=== PATIENT | male | born 1960 | race Caucasian/White ===

== ENCOUNTER 2022-04-18 10:40 | Inpatient (IN) | payer BC, SELFPAY ==
[2022-04-18] VITALS (19 sets, daily range): BP systolic 98–152; BP diastolic 45–95; PULSE 71–115; RESP 16–23; TEMP 35.8–37.9; O2SAT 89–100; BMI 27.3; BMI 26.9
--- NOTE | 2022-04-18 10:41 | EKG12_ITS ---
Test Reason : CP Blood Pressure : / mmHG Vent. Rate : 099 BPM Atrial Rate : 099 BPM P-R Int : 166 ms QRS Dur : 076 ms QT Int : 374 ms P-R-T Axes : 075 089 -50 degrees QTc Int : 479 ms Normal sinus rhythm Low voltage QRS Anteroseptal infarct , possibly acute Lateral injury pattern ACUTE WV / STEMI Abnormal ECG Confirmed by SHAINA BERRY, DAVE ([id number]), editorial cartoonist PETER MIN ([id number]) on 04/20/2022 1:45:38 PM Referred By: Abdoulaye Moss Confirmed By:YOHANNES MOSS MD
--- NOTE | 2022-04-18 10:45 | ED.VIS.CHEST ---
HPI History of Present Illness Chief Complaint: Chest Pain Detail of Chief Complaint: Midsternal chest pain Informant: patient and EMS Onset/Context/Timing Onset: Hours (25 minutes prior to presentation while playing golf) Activity at onset: sudden Timing: Continuous Quality: Positive for Heaviness and Pressure Location: Substernal Current Severity: Severe Maximum Severity: Severe Worsened By: Nothing Relieved By: Nothing Associated Symptoms: Positive for Nausea, Diaphoresis and Dyspnea; Negative for Cough, Fever, Lightheadedness, Acid Reflux and Palpitations Narrative Narrative: Patient is a 62-year-old male with history of diabetes. Patient developed severe crushing pressure midsternal chest pain while playing golf. He feels nauseous and is diaphoretic. He complains of mild shortness of breath. He may have been hypoxic prior to arrival. He denies history of hypertension. He denies numbness or tingling his upper or lower extremities. He denies back pain. He has no contraindication anticoagulation. Prior Similar Symptoms: No CVD Risk Factors: Positive for Diabetes; Negative for Hypertension, Hypercholesterolemia, Family History 1' </=55 and Smoking PE Risk Factors: Negative for Recent Travel/Surgery, Recent Immobilization, Prior DVT or PE, Cancer and OCP + Smoking + >/=35 TAD Risk Factors: Negative for Marfan's Syndrome, Hypertension and Family History PFSH PFS Medical History (Updated 04/18/22 @ 10:[address] Miguel Gustafson MD) Diabetes no medical history Allergy/AdvReac Type Severity Reaction Status Date / Time No Known Allergies Allergy Verified 04/18/22 10:46 Social History (Updated 04/18/22 @ 10:[address] Miguel Gustafson MD) household members: other Smoking Status: Never smoker alcohol intake: current substance use type: does not use ROS ROS ED Constitutional Constitutional ED: Denies chills, fever(s), subjective, sweats or weight loss Eyes Eyes: Denies blurry vision, change in vision or diplopia ENT ENT ED: Denies ear pain, rhinorrhea or sore throat Cardiovascular Cardiovascular: Reports as per HPI; Denies orthopnea Respiratory/Chest Respiratory/Chest: Reports dyspnea and dyspnea on exertion; Denies cough, orthopnea or sputum Gastrointestinal Gastrointestinal: Reports nausea; Denies abdominal pain, constipation, diarrhea, melena or vomiting Genitourinary Genitourinary ED: Denies dysuria, hematuria or urinary frequency Musculoskeletal Musculoskeletal: Denies arthralgias, myalgias or neck pain Integumentary Denies abscess, Abrasions or rash Neurologic Neurologic: Denies headache(s), paresthesias or weakness Psychiatric Psychiatric: Reports anxiety Hematologic/Lymphatic Hematologic/Lymphatic: Denies easy bleeding or easy bruising EXAM Physical Exam Const Vital Signs: 04/18/22 10:41 Temperature 96.5 F L Temperature Source Temporal Pulse Rate 71 Respiratory Rate 16 Blood Pressure 113/84 H Blood Pressure Mean 93 Pulse Ox 96 Oxygen Delivery Method Room Air Positive well nourished and well developed General Appearance ED: well developed and other Patient is writhing in pain holding his chest and profusely sweating ; Negative for NAD or pallor HEENT Reports dry mucous membranes normocephalic and atraumatic Mouth ED: Yes dry mucous membranes Mouth: dry mucous membranes Eyes PERRL and EOMs intact bilaterally General Eye ED: Negative for pale conjunctiva or scleral icterus Neck no lymphadenopathy, supple and no JVD Chest Wall inspection of chest normal and palpation of chest normal Resp No normal respiratory effort Effort and Inspection: respiratory distress Auscultation: rales bilateral base Cardio regular rate, regular rhythm, S1 normal heart sound, S2 normal heart sound and no murmurs GI normal to inspection, nondistended, normoactive bowel sounds, soft to palpation, non-tender and non-distended; Negative for hepatosplenomegaly Back/Spine no CVA tenderness and no thoracic nor lumbar tenderness Extremity normal to inspection General Extremety ED: Negative for edema, pulses abnormal or tenderness General Extremity: Negative for edema or pulses abnormal Neuro CN's II-XII intact bilaterally and no sensory deficits noted Sensorium / Orientation: awake Motor Exam: strength 5/5 throughout Psych Psych Narrative: Patient is anxious Skin no rashes or lesions noted and no wounds General Skin Exam: Negative for jaundice or pallor Heart Score History: Highly Suspicious ECG: Significant ST-Depression Age: >45 - <65 years Risk Factors: 1 or 2 Risk Factors Score: 6 MDM MDM MDM Narrative Medical decision making narrative: Patient with marked ST elevation anterior leads with reciprocal changes in inferior leads. This reveals an acute anterior ST elevation [place]. STEMI team was called. Patient was treated with aspirin, heparin and Brilinta. Spoke with service center technician. Lab Data Lab results narrative: Lab results were not available at the time of dictation and transfer to cardiac Apprenticeship Training Representative EKG Initial EKG: Interpretation: Sinus Rhythm (Ventricular rate is 99. WV interval is 106 6 ms. Cures duration 76 ms. QT duration 374 ms. [place] is normal. Patient has an acute ST elevation [place]V anteriolateral lead with reciprocal changes in the inferior leads.) Critical Care Time Critical Care Time: Yes Critical care time (excluding procedures): 30-74 minutes (10 minutes), Including time spent: (History, documentation, discussion with service center technician), Discussing w/Patient &/or Family/Manager Provider Relations, Discussing w/Consultants and Arranging Admission or Transfer Discharge Plan Triage Chief Complaint: Chest Pain ED Provider: Miguel Gustafson Dx/Rx/DC Orders Clinical Impression: Acute ST elevation myocardial infarction (STEMI) of anterolateral wall Primary Care Provider: Care Physician,No Primary Referrals: Care Physician,No Primary [Primary Care Provider] - Disposition Disposition: Acute Care Hospital [facility] Discharge Date/Time: 04/18/22 10:48
--- NOTE | 2022-04-18 10:49 | NURSING ---
ICU AFTER PRINCIPAL DATABASE DEVELOPER SHAINA ACUTE STEMI
[2022-04-18] MEDS: Aspirin 81 MG TAB.CHEW 324 MG PO (10:51)
[2022-04-18] MEDS: TICAGRELOR 90 MG TABLET 180 MG PO (10:51)
[2022-04-18] MEDS: 0.9% Normal Saline 1,000 ML 150 ML IV (10:52)
[2022-04-18] MEDS: Heparin Injection (Vial) 5,000 UNIT/ML VIAL 4000 UNIT IV (10:52)
[2022-04-18 10:55] LABS: Absolute Lymphocyte Count 1.91 X10^3/uL (0.83-4.51); Absolute Neutrophil Count 4.8 X10^3/uL (2.0-7.7); Basophil# 0.05 X10^3/uL; Basophil% 0.6 % (0-1); Eosinophil# 0.14 X10^3/uL; Eosinophils% 1.7 % (0-5); Hematocrit 50.1 % (40-54); Lymphocyte # 1.91 X10^3/ul (0.83-4.51); Lymphocyte % 23.7 % (19-41); Mean Corp Hgb Conc 33.9 g/dL (32-36); Mean Corpuscular Hgb 29.4 pg (27.0-32.0); Mean Corpuscular Volume 86.5 fL (80-94); Mean Platelet Vol. 9.5 fl (6.2-12.0); Monocyte# 1.17 X10^3/uL; Monocyte% 14.5 % (0-10); NRBC Flagged by Analyzer 0 % (0-5); Neutrophil # 4.76 X10^3/uL (2.7-7.7); Platelet Count 253 K/mm3 (150-450); RBC Distribution Width CV 12.8 % (11.6-14.6); RBC Distribution Width SD 39.6 fl (35.1-43.9); Red Blood Count 5.79 M/mm3 (4.6-6.2); White Blood Count 8.1 K/mm3 (4.4-11.0)
[2022-04-18 11:03] LABS: International Normalized Ratio 0.9; Prothrombin Time (Protime)PT. 12.2 SECONDS (11.7-14.9)
[2022-04-18 11:04] LABS: Partial Thromboplast Time 23.5 Seconds (24.1-36.2)
[2022-04-18 11:14] LABS: Anion Gap 14 (5-15); BUN 33 mg/dL (7-18); BUN/Creat Ratio 25.2 RATIO (10-20); Calcium,Total 9.9 mg/dL (8.5-10.1); Chloride 103 mmol/L (98-107); Creatinine, Serum 1.31 mg/dL (0.70-1.30); EST Glomerular Filtration Rate 59 mL/min (>60); Est Glom Filt Rate - Afr Amer 71 mL/min (>60); Estimated Creatinine Clearance 58.47 ml/min; Glucose 255 mg/dL (74-106); Potassium 3.9 mmol/L (3.5-5.1); Sodium Level 137 mmol/L (136-145); Troponin-I HS 54 pg/mL (3.0-78.0)
--- NOTE | 2022-04-18 11:34 | CM.ED ---
Social Work Note Reason for Referral: STEMI alert This worker and SW Ramya MACEDO-S responded to STEMI Alert. Pt's brother Rich at [facility]. Support provided to Rich. Chloé Butterfield DIAMOND SIZER AND SORTER, CORROSION CONTROL FITTER
--- NOTE | 2022-04-18 12:14 | HP.PCM.HOS_ITS ---
HPI - General General Date of Admission: 04/18/22 Date of Service: 04/18/22 Chief Complaint: Chest pain while playing golf today HPI Narrative GRACIE NAIDU, is a 62 M with history of diabetes mellitus type 2 was brought to ED for midsternal chest pressure while playing golf. He woke up fine in the morning and then while playing soccer and only felt chest pressure, localized 3- 4/10 intensity associated with mild shortness of breath. He tried to play for some time but chest pain persisted and got worse therefore came to ER. Patient also felt nauseous and diaphoretic and vomited once in the Transfer Car [facility]. Twelve-lead EKG done in the ER shows acute anterior ST elevation 11 mm V2 to V6 along with reciprocal ST depression in inferior leads. Sinus rhythm at 99 bpm. QRS 76 ms, QT 374 ms. STEMI alert was called. Patient was taken to [facility]. 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 Origin of left main may be normal variation. It was about 99% occlusion and PCI/2DES stent was placed. Right radial artery approach but was unsuccessful therefore right femoral artery access. It was closed with Perclose. The patient was admitted and transferred to the ICU. Vitals, labs reviewed and discussed in assessment and plan Patient denies history of hypertension. His mother and father both had coronary artery disease/[place] in their 50s. His brother also has history of coronary artery disease. Patient denies any smoking cigarettes/nicotine use or substance use. Occasionally takes alcohol. [facility] Medical History Diabetes Medical History no medical history Allergy/AdvReac Type Severity Reaction Status Date / Time No Known Allergies Allergy Verified 04/18/22 10:46 Social History household members: other Smoking Status: Never smoker alcohol intake: current substance use type: does not use ROS ROS Narrative Constitutional: Reports fatigue and weakness HEENT: Reports systems reviewed and no addt'l complaints, except as documented Respiratory/CVS: As mentioned in HPI. No prior history of [place] chest pain or angina. Denies claudication or peripheral arterial disease. Gastrointestinal: Denies coffee ground emesis, hematemesis or vomiting Genitourinary: Denies burning urination or new urinary tract symptoms Musculoskeletal: Denies joint pain or limited range of motion Neurologic: Denies seizure-like activity. No stroke or weakness or numbness. skin: No ulcer. No rash Endocrinology: Reports systems reviewed and no addt'l complaints, except as documented Hematologic/Lymphatic: Reports systems reviewed and no addt'l complaints, except as documented Rest 14 ROS are negative except as mentioned in HPI Vital Signs Vital Signs Vital Signs: 04/18/22 10:41 04/18/22 10:48 04/18/22 10:51 Temperature 96.5 F L 96.7 F L Temperature Source Temporal Temporal Pulse Rate 71 74 Respiratory Rate 16 18 Respiratory Effort Normal Non-Labored Respiratory Pattern Normal Blood Pressure 113/84 H 98/45 L Blood Pressure Mean 93 62 Pulse Ox 96 96 Oxygen Delivery Method Room Air Nasal Cannula Room Air Oxygen Flow Rate (L/min) 2 Weight Weight: 188 lb 1.6 oz Body Mass Index (BMI) 27.3 Physical Exam Narrative General: Mild lethargy after cath. Oriented x3, Cooperative HEENT: Atraumatic, PERRLA, EOMI, Normocephalic Oral: Oral mucosa dry. No Gingival or Mucosal Lesions/ Ulcerations Neck: Supple, No JVD, Negative Carotid Bruits Lungs: Air entry diminished in bilateral lung bases. No crepitation/rhonchi Cardiovascular: Regular rate, Regular Rhythm, Normal S1, Normal S2, No murmurs Abdomen: Bowel Sounds Present, Soft, Non Tender, Non-Distended : No dysuria/new lower intact symptoms. No renal angle tenderness. No suprapubic tenderness. Extremities: No edema, Capillary Refill Less than 3 Seconds Skin: No rashes, No breakdown Musculoskeletal: No Tenderness to Palpation of Joints or Extremities Neurological: Cranial nerves II-XII grossly intact, DTR 2+/4 and Symmetrical, Neuro grossly intact Psych/Mental Status: Normal Affect, Appropriate. Results Lab / Micro Data Result Diagrams: 04/18/22 12:45 04/18/22 10:45 Labs: Laboratory Results - last 24 hr 04/18/22 10:45: WBC 8.1, RBC 5.79, Hgb 17.0 H, Hct 50.1, MCV 86.5, MCH 29.4, MCHC 33.9, RDW Std Deviation 39.6, RDW Coeff of Danny 12.8, Plt Count 253, MPV 9.5, Immature Gran % (Auto) 0.500, Neut % (Auto) 59.0, Lymph % (Auto) 23.7, Lucas % (Auto) 14.5 H, Eos % (Auto) 1.7, Baso % (Auto) 0.6, Absolute Neuts (auto) 4.8, Absolute Lymphs (auto) 1.91, Nucleated RBC % 0 04/18/22 10:45: PT 12.2, INR 0.9, APTT 23.5 L 04/18/22 10:45: Sodium 137, Potassium 3.9, Chloride 103, Carbon Dioxide 20.0 L, Anion Gap 14, BUN 33 H, Creatinine 1.31 H, Estim Creat Clear Calc 58.47, Est GFR (MDRD) Af Amer 71, Est GFR (MDRD) Non-Af 59 L, BUN/Creatinine Ratio 25.2 H, Glucose 255 H, Calcium 9.9, Troponin I High Sens 54 Assessment & Plan Assessment/Plan (1) Acute ST elevation myocardial infarction (STEMI) of anterolateral wall: PLAN: 1. Acute NSTEMI of anterolateral wall: Patient is being admitted in ICU. Patient had cath and found to have left main culprit lesion for which she had PCI and 2 stents. On aspirin, Brilinta, carvedilol, lisinopril, and atorvastatin. Right femoral artery access was closed with Perclose. Monitor ri ght groin for hematoma or bleeding. Most recent vitals shows blood pressure 98/45, heart rate 74. No hypoxia. Serum magnesium ordered. Repeat EKG shows resolution of ST elevation and reciprocal changes. Normal sinus rhythm. Mild leukocytosis probably inflammatory reaction to STEMI. First troponin negative. 2D echo and fasting lipid profile and TSH ordered for tomorrow a.m. 2. Diabetes mellitus type 2: Glucose is uncontrolled, 255 in BMP. A1c tomorrow a.m. Accu-Chek before meals and at bedtime coverage with Humalog sliding scale. 3. Elevated BUN/creatinine: BUN 33, creatinine 1.31, BUN/creatinine ratio 25 suggestive of prerenal possible [place]. No previous labs to compare. On IV fluid normal saline. Monitor electrolytes and kidney function 4. VTE prophylaxis: Lovenox 40 mg every 12 hourly after 24 hours of sheath removal. Discontinue if platelet count drops less than 50,000 or hemoglobin less than 8 g%. Bilateral SCDs Living will/advanced directive/end of life care: Patient does not have living will or advanced directive. His next to kin his brother. Patient is single does not have or kids. After discussion of benefits/risks procedures involved with full code, DNR CC arrest and DNR CC, the patient opted for full code. Patient does want artificial life support including intubation, tube feed, ventilator and/chest compression, central venous catheter, vasopressor and DC shock if needed Total time spent in [id number] encounter in discussion of advanced directive 16 minutes. Charges/Coding Visit Charges Inpatient E&M: 34548 Init Hosp L3 Procedures Hospitalists Procedures: 43475 Advncd Care Plan 30 Min
--- NOTE | 2022-04-18 12:15 | EKG12_ITS ---
Test Reason : POST STEMI Blood Pressure : / mmHG Vent. Rate : 083 BPM Atrial Rate : 083 BPM P-R Int : 182 ms QRS Dur : 080 ms QT Int : 398 ms P-R-T Axes : 064 029 057 degrees QTc Int : 467 ms Normal sinus rhythm Normal ECG When compared with ECG of 18-APR-2022 10:40, MANUAL COMPARISON REQUIRED, DATA IS UNCONFIRMED Confirmed by SHAINA BERRY, DAVE ([id number]), photo editor PETER MIN ([id number]) on 04/20/2022 1:52:15 PM Referred By: Abdoulaye Moss Confirmed By:YOHANNES MOSS MD
--- NOTE | 2022-04-18 12:26 | EKG12_ITS ---
Test Reason : AM EKG Blood Pressure : / mmHG Vent. Rate : 078 BPM Atrial Rate : 078 BPM P-R Int : 170 ms QRS Dur : 078 ms QT Int : 414 ms P-R-T Axes : 054 085 095 degrees QTc Int : 471 ms Normal sinus rhythm Septal infarct , age undetermined Abnormal ECG When compared with ECG of 19-APR-2022 04:44, No significant change was found Confirmed by BARRETT BERRY, KERRIE ([id number]), makeup editor PETER MIN ([id number]) on 04/24/2022 1:19:04 PM Referred By: Abdoulaye Moss Confirmed By:KERRIE HYDE MD
--- NOTE | 2022-04-18 12:31 | ECHOCS_ITS ---
Reason For Study: STEMI Procedure This was a 2D Doppler, Color Flow transthoracic echocardiogram. Contrast injection was performed. Exam performed portable in ICU/CCU. Left Ventricle Normal LV size. The estimated ejection fraction is 45 %. Mild segmental systolic dysfunction (see wall motion). [place] : Hypokinetic. Mid-anteroseptal : Hypokinetic. Septal [place] : Hypokinetic. Right Ventricle Normal RV size. Normal systolic function. Atria Normal left atrium. Normal right atrium. Mitral Valve Normal mitral valve. Tricuspid Valve Normal tricuspid valve. Aortic Valve Trisinus/trileaflet aortic valve. Pulmonic Valve The pulmonic valve is not well visualized. Great Vessels Normal aortic root. Pericardium/Pleural No pericardial effusion. Medication Diluted definity 4ml given slow IV push to enhance endocardial definition. MMode/2D Measurements & Calculations LVIDd: 4.3 cm IVSd: 0.87 cm Ao root diam: 3.2 cm LVIDs: 3.2 cm LVPWd: 0.68 cm RVDd: 2.2 cm FS: 25.9 % LAV(MOD-bp): 10.1 ml LA A4 area: 7.4 cm2 LA dimension(2D): 2.8 cm LAV(MOD-bp) Indexed: 5.1 ml/m2 LAV(MOD-sp2): 8.3 ml LAV(MOD-sp4): 11.3 ml RA A4 area: 7.2 cm2 Doppler Measurements & Calculations MV E max gabino: 102.3 cm/sec Med Peak E' Gab[place]: 16.1 cm/sec Ao V2 max: 80.8 cm/sec MV A max gabino: 89.5 cm/sec E/E' med: 6.4 Ao max P.6 mmHg MV E/A: 1.1 Ao V2 mean: 57.1 cm/sec Ao mean P.4 mmHg Ao V2 VTI: 13.5 cm LV V1 max: 73.2 cm/sec PA V2 max: 84.1 cm/sec LV V1 max P.1 mmHg ECHO/Echo Complete W/ Contrast Interpretation Summary Normal LV size. The estimated ejection fraction is 45 %. [place] : Hypokinetic. Mid-anteroseptal : Hypokinetic Septal [place] : Hypokinetic Mild segmental systolic dysfunction (see wall motion). Ordering Physician: Stewart Tyson Referring Physician: Abdoulaye Moss Performed By: Irina Gallego, CLAUDE, RVT
[2022-04-18 12:57] LABS: Hematocrit 49.5 % (40-54); Hemoglobin 16.4 g/dL (13.0-16.5); Mean Corp Hgb Conc 33.1 g/dL (32-36); Mean Corpuscular Hgb 28.9 pg (27.0-32.0); Mean Corpuscular Volume 87.1 fL (80-94); Mean Platelet Vol. 9.5 fl (6.2-12.0); Platelet Count 210 K/mm3 (150-450); RBC Distribution Width CV 12.9 % (11.6-14.6); RBC Distribution Width SD 40.7 fl (35.1-43.9); Red Blood Count 5.68 M/mm3 (4.6-6.2); White Blood Count 14.6 K/mm3 (4.4-11.0)
[2022-04-18] MEDS: 0.9% Normal Saline 1,000 ML 100 ML IV (13:09)
--- NOTE | 2022-04-18 13:11 | CHAPLAIN ---
Type of Pastoral Visit ___ Initial Visit ___ Follow-up Visit ___ On-call Visit ___ General Patient Visit ___ Spiritual Assessment ___ Family Conference ___ Bereavement _x__ Rapid Response ___ Code Blue ___ Other (describe below) Pastoral Care Referral From ___ Patient ___ Family ___ Nurse ___ Physician ___ Advanced Practice Registered Nurse ___ Human Resources Psychologist _x__ Other (describe below) Sacrament/Intervention _x__ Active listening ___ Anointing ___ Latter Day ___ Bereavement ___ Communion ___ Mitzy exploration ___ _x__ Life review _x__ Prayer ___ Reconciliation ___ Sacrament of Sick _x__ Supportive presence ___ Wedding ___ Other (describe below) Pastoral Comments responded to stemi alert; offer of support given to brother of patient by this wildlife policy professional and the SW team; escorted brother to [facility] and sat with him during whole procedure; brother was anxious and talkative; was available at times when medical team talked with family member; escorted brother to ICU and there found another family member that arrived; time, presence, and support given
--- NOTE | 2022-04-18 13:37 | CON.PCM.CA_ITS ---
Assessment & Plan Assessment/Plan (1) Acute ST elevation myocardial infarction (STEMI) of anterolateral wall: PLAN: Patient had V. fib cardiac arrest that was treated with defibrillation x2. He did not require intubation and regained consciousness right after the defibrillation. He was treated with drug-eluting stent to the mid left main. His EF is around 40% with anterior hypokinesis. We will keep the patient on aspirin, Brilinta, statin, beta-eduard and PANCHO inhibitor. He will be admitted to the CCU for further management of his anterior ST elevation FL. As an outpatient he may benefit from CT angiogram of his coronary arteries to see if the anomalous left main tracks between the pulmonary artery and aorta. HPI Consult Data Date of Consult: 04/18/22 HPI Narrative HPI Narrative: GRACIE NAIDU, is a 62 M who presents with chest pain that started when he was playing golf. He admitted back to the [facility] and 911 was called. He was brought to the emergency room and was found to have anterior ST elevation [place] and a STEMI alert was called. Patient was evaluated in the emergency room and brought emergently to the P[facility] Making Machine [facility]. When he was on the table prior to us getting arterial access he went into V. fib cardiac arrest and required defibrillation x2. Patient had return to sinus rhythm and was alert awake and oriented. He underwent emergent coronary angiography which revealed 99% stenosis in the left main that had anomalous origin from the right coronary cusp. This was treated with thrombectomy and drug-eluting stent placement. Patient had nausea and 1 episode of vomiting after the procedure. This was about an hour after Brilinta was given. He was given Zofran in the Pouch Making Machine Operator. He was doing significantly better at the end of the procedure. He is being admitted to the CCU for further management of his anterior ST elevation FL. Review of systems: All systems reviewed. All else is negative except that in HPI [facility] Medical History (Updated 04/18/22 @ 13:35 by Regi Elias) Chest pain CPAP (continuous positive airway pressure) dependence Diabetes Myocardial infarct (~04/18/22) Non-smoker Sleep apnea Medical History no medical history Home Medications empagliflozin-metformin [Synjardy XR] 1,000 tab PO DAILY 04/18/22 [History Last Taken 04/18/22] omeprazole 20 mg PO QHS 04/18/22 [History Last Taken 04/17/22] simvastatin 40 mg PO QHS 04/18/22 [History Last Taken 04/17/22] Allergy/AdvReac Type Severity Reaction Status Date / Time No Known Allergies Allergy Verified 04/18/22 10:46 Social History household members: other Smoking Status: Never smoker alcohol intake: current substance use type: does not use Physical Exam Const alert and oriented x3 Orientation / Consciousness: awake HEENT normocephalic Eyes no scleral icterus Chest inspection of chest normal Resp normal respiratory effort Cardio regular rate Skin no rashes or lesions noted Neuro oriented x3 Psych mental status grossly normal Risk Stratification Risk Stratification Applicable: No Charges/Coding Visit Charges Inpatient E&M: 51883 Init Hosp L2 Objective Data Vital Signs: Vital Signs Temp Pulse Resp BP Pulse Ox 96.7 F L 88 18 98/45 L 96 04/18/22 10:51 04/18/22 12:30 04/18/22 10:51 04/18/22 10:51 04/18/22 10:51 Oxygen Flow Rate (L/min) 2 Oxygen Delivery Method Room Air Weight: 182 lb 1 oz Body Mass Index (BMI) 26.9 Intake & Output: Intake and Output for Last 24 Hours 04/16/22 04/17/22 04/18/22 23:59 23:59 23:59 Intake Total 347.5 / 347.5 Balance 347.5 / 347.5 Lab / Micro Data Result Diagrams: 04/18/22 12:45 04/18/22 10:45 Labs: Laboratory Results - last 24 hr 04/18/22 10:45: WBC 8.1, RBC 5.79, Hgb 17.0 H, Hct 50.1, MCV 86.5, MCH 29.4, MCHC 33.9, RDW Std Deviation 39.6, RDW Coeff of Danny 12.8, Plt Count 253, MPV 9.5, Immature Gran % (Auto) 0.500, Neut % (Auto) 59.0, Lymph % (Auto) 23.7, [place] % (Auto) 14.5 H, Eos % (Auto) 1.7, Baso % (Auto) 0.6, Absolute Neuts (auto) 4.8, Absolute Lymphs (auto) 1.91, Nucleated RBC % 0 04/18/22 10:45: PT 12.2, INR 0.9, APTT 23.5 L 04/18/22 10:45: Sodium 137, Potassium 3.9, Chloride 103, Carbon Dioxide 20.0 L, Anion Gap 14, BUN 33 H, Creatinine 1.31 H, Estim Creat Clear Calc 58.47, Est GFR (MDRD) Af Amer 71, Est GFR (MDRD) Non-Af 59 L, BUN/Creatinine Ratio 25.2 H, Glucose 255 H, Calcium 9.9, Troponin I High Sens 54 04/18/22 12:45: WBC 14.6 H, RBC 5.68, Hgb 16.4, Hct 49.5, MCV 87.1, MCH 28.9, MCHC 33.1, RDW Std Deviation 40.7, RDW Coeff of Danny 12.9, Plt Count 210, MPV 9.5 04/18/22 12:45: WBC Cancelled, Corrected WBC Cancelled, RBC Cancelled, Hgb Cancelled, Hct Cancelled, MCV Cancelled, MCH Cancelled, MCHC Cancelled, RDW Std Deviation Cancelled, RDW Coeff of Danny Cancelled, Plt Count Cancelled, MPV Cancelled, Diff Path Review Cancelled Cardiology Labs/Tests 04/18/22 10:45: WBC 8.1, RBC 5.79, Hgb 17.0 H, Hct 50.1, MCV 86.5, MCH 29.4, MCHC 33.9, Plt Count 253, MPV 9.5, Immature Gran % (Auto) 0.500, Neut % (Auto) 59.0, Lymph % (Auto) 23.7, [place] % (Auto) 14.5 H, Eos % (Auto) 1.7, Baso % (Auto) 0.6, Absolute Neuts (auto) 4.8, Nucleated RBC % 0 04/18/22 10:45: PT 12.2, INR 0.9, APTT 23.5 L 04/18/22 10:45: Sodium 137, Potassium 3.9, Chloride 103, Carbon Dioxide 20.0 L, Anion Gap 14, BUN 33 H, Creatinine 1.31 H, Est GFR (MDRD) Af Amer 71, Est GFR (MDRD) Non-Af 59 L, BUN/Creatinine Ratio 25.2 H, Glucose 255 H, Calcium 9.9 04/18/22 12:45: WBC 14.6 H, RBC 5.68, Hgb 16.4, Hct 49.5, MCV 87.1, MCH 28.9, MCHC 33.1, Plt Count 210, MPV 9.5 04/18/22 12:45: WBC Cancelled, Corrected WBC Cancelled, RBC Cancelled, Hgb Cancelled, Hct Cancelled, MCV Cancelled, MCH Cancelled, MCHC Cancelled, Plt Count Cancelled, MPV Cancelled Rhythm: EKG: ECHO: Stress Test: Cardiac Cath: PCI: CT Surgery: Holter monitor: EPS: PPM: CXR: Chest CT Scan:
[2022-04-18 13:38] LABS: Magnesium 2.2 mg/dL (1.6-2.6); Troponin-I HS 691 pg/mL (3.0-78.0)
--- NOTE | 2022-04-18 13:54 | CL.I_ITS ---
Patient Name: GRACIE NAIDU Study Date: 04/18/2022 Performing: Carmelo Moss MD Ht: 70 inches 177 cm : 1960 Wt: 187.6 lbs 85 kg Age: 62 Gender: male BSA: 2.02 PROCEDURE(S) PERFORMED IC16-([id number])AMI, CHRIS OR PTCA, ARTERY/GRAFT, SINGLE VESSEL DC01-([id number])LHC/COR/LV CLINICAL PROFILE AND CO-MORBIDITIES Indications: ACS <= 24 hrs Heart Failure: None Stress/Imaging Stress/Image Study Performed: No CAD Presentations: STEMI. 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 LVEF is 40% with anterior hypokinesis. No significant aortic st enosis or mitral regurgitation. Successful PCI of left main with drug-eluting stent as described. RECOMMENDATIONS DESCRIPTION OF PROCEDURE The patient arrived to the procedure lab. The risks and benefits of the procedure as well as a full d escription of our services here and lack of surgical backup were fully explained to the patient and/o r their significant other prior to the catheterization. The Timeout was completed, verifying the danyelle ect patient and procedure. The patient's procedural site was prepped and draped in the usual fashion. Local anesthetic was given subcutaneously to right radial region with Lidocaine 2%. Local anesthetic was given subcutaneously to right groin region with Lidocaine 2%. Using a modified Seldinger techniq ue, arterial access was obtained via the right femoral artery, a 6Fr sheath was inserted.. Right Cor onary Artery selective angiography was then performed in multiple views using a 5 Fr. JR 4 catheter. Left Coronary Artery selective angiography was performed in multiple views using a 5 Fr. JR 4 cathete r. Left Ventriculography was performed in COLON projection using a 5 Fr. Pigtail catheter. LV to AO pullback pressures were then recordedThe images were reviewed and options discussed. A decis ion was then made to proceed with an Intervention, IVUS or other adjunct procedure. JR 4.0 Guide catheter was inserted and engaged into the LCA. BMW Guide wire was advanced to the C ircumflex. Priority One inserted Pass # 1 Priority One Removed Angiogram performed pre balloon dilata tion. 3.5 x 15 Emerge Balloon catheter was inserted. PTCA balloon inflated at 6 atms for 12 secs. PTC A balloon inflated at 6 atms for 30 secs. Angiogram performed post balloon dilatation. 4.0 x 28 Syner gy Drug Eluting stent was advanced across the lesion in the Left Main mid Angiogram performed pre st ent deployment. Angiogram performed post stent deployment. Angiogram performed post stent deployment. Contrast was injected through the sheath and the Right Iliac and Femoral artery were assessed for po ssible closure device. 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 99% stenosis in the mid left main with thrombus LEFT ANTERIOR DESCENDING ARTERY: Mild luminal irregularities CIRCUMFLEX ARTERY: Mild luminal irregularities RIGHT CORONARY ARTERY: Mild luminal irregularities VALVE FINDINGS: No Aortic Valve Stenosis No Mitral Insufficency INTERVENTION INFORMATION LESION SITE: Left Main (Mid) Lesion Complexity: High/C, chronic total occlusion: No, lesion at bifurcation: No, thrombus present: Yes, lesion length: 26 mm, culprit lesion: Yes Pre Stenosis: 99 % Pre intervention ALEX flow: 1 PROCEDURE: Thrombectomy, Drug Eluting Stent with pre dilatation. Patient went into V. fib cardiac arrest just before we got arterial access. He was defibrillated x2. There was return to sinus rhythm. Patient did not require pressors or intubation. He was oriented x3 right after defibrillation. Post Stenosis: 0 % Post intervention ALEX flow: 3 Lesion Devices: Wilkerson .014 BMW Bishop Straight 190cm Medtronic 6 Fr JR4.0 100cm Guide Catheter Jimenez Sci EMERGE MR 3.50x15 BALLOON Jimenez Sci Synergy MR CHRIS 4.00x28 COMPLICATIONS No Complications PROCEDURE MEDICATIONS Oxygen: 6 L/min via nasal cannula Oxygen: 10 L/min via non-rebreather mask Oxygen: 4 L/min via nasal cannula Heparin 4000 unit(s) IV 04/18/2022 11:00:36 Heparin given IA 04/18/2022 11:04:31 Zofran 4 mg IV 04/18/2022 11:40:01 IV Bolus: .9 NaCl 500 ml total 04/18/2022 11:37:08 SUMMARY OF HEMODYNAMIC DATA Time AIR REST ECG 10:55:14 AO 104/43 (54) SA 11:05:33 LV 104/10, 28 11:06:35 LV 83/3, 5 11:44:19 LV 89/5, 9 11:44:24 LV 92/-1, 14 11:45:15 LVp 94/-2, 15 11:45:25 AOp 94/55 (74) 11:45:30 Signed By Carmelo Moss MD On 04/18/2022 13:53:34 Carmelo Moss MD
--- NOTE | 2022-04-18 14:11 | RAD_ITS ---
STUDY: X-RAY CHEST REASON FOR EXAM: Male, 62 years old. STEMI alert in the ER. Shortness of breath following heart catheterization. TECHNIQUE: Single AP portable view of the chest. COMPARISON: None. FINDINGS: EKG electrodes are seen. There is evidence of a airspace disease in the right perihilar region. This may represent the atypical CHF. Follow-up recommended. There is no demonstrated pleural abnormality. Normal size heart. Normal mediastinum and dania. Normal visualized pulmonary arteries. Normal visualized aortic arch and descending thoracic aorta. Normal visualized thoracic spine. Normal visualized ribs, clavicles, and shoulders. There is no demonstrated abnormality of the visualized soft tissue structures of the upper abdomen. RAD/Chest 1 View (Portable) IMPRESSION: Airspace disease in the right perihilar region following heart catheterization. This may represent atypical pulmonary edema. Clinical correlation recommended. Electronically Signed: Foster Dent MD at 14:41 EDT ,
[2022-04-18 17:10] LABS: Bedside Glucose 110 mg/dL (74-106)
[2022-04-18] MEDS: Carvedilol 3.125 MG TABLET PO ×2 (17:23→22:08)
[2022-04-18] MEDS: Acetaminophen 325 MG Tablet 650 MG PO (17:24)
[2022-04-18 17:35] LABS: Troponin-I HS 7840 pg/mL (3.0-78.0)
[2022-04-18] MEDS: 0.9% Saline Lock 10 ML Syringe IV (22:07)
[2022-04-18] MEDS: Atorvastatin Calcium 40 MG Tablet PO (22:07)
[2022-04-18] MEDS: TICAGRELOR 90 MG TABLET PO (22:09)
[2022-04-18 22:20] LABS: Bedside Glucose 124 mg/dL (74-106)
[2022-04-19] VITALS (30 sets, daily range): BP systolic 90–141; BP diastolic 46–92; PULSE 75–104; RESP 14–21; TEMP 35.7–37.8; O2SAT 93–100
[2022-04-19] MEDS: Acetaminophen 325 MG Tablet 650 MG PO (00:17)
[2022-04-19 04:06] LABS: Bedside Glucose 171 mg/dL (74-106)
[2022-04-19 04:15] LABS: Absolute Neutrophil Count 9.2 X10^3/uL (2.0-7.7); Basophil# 0.04 X10^3/uL; Basophil% 0.3 % (0-1); Eosinophil# 0.06 X10^3/uL; Eosinophils% 0.5 % (0-5); Hematocrit 41.2 % (40-54); Hemoglobin 13.6 g/dL (13.0-16.5); Lymphocyte % 10.1 % (19-41); Mean Corpuscular Hgb 28.6 pg (27.0-32.0); Mean Corpuscular Volume 86.6 fL (80-94); Mean Platelet Vol. 9.6 fl (6.2-12.0); Monocyte# 1.33 X10^3/uL; Monocyte% 11.2 % (0-10); NRBC Flagged by Analyzer 0 % (0-5); Neutrophil # 9.16 X10^3/uL (2.7-7.7); Neutrophil % 77.6 % (47-70); Platelet Count 194 K/mm3 (150-450); RBC Distribution Width CV 13.1 % (11.6-14.6); RBC Distribution Width SD 40.7 fl (35.1-43.9); Red Blood Count 4.76 M/mm3 (4.6-6.2); White Blood Count 11.8 K/mm3 (4.4-11.0)
[2022-04-19 04:45] LABS: ALB/GLOB Ratio 1.1 RATIO (0.9-2.4); AST(SGOT) 110 U/L (15-37); Alanine Aminotransfer ALT/SGPT 39 U/L (16-61); Albumin, Serum 3.4 g/dL (3.2-5.0); Alkaline Phosphatase 55 U/L (45-117); Anion Gap 8 (5-15); BUN 23 mg/dL (7-18); BUN/Creat Ratio 25.9 RATIO (10-20); Calcium,Total 8.2 mg/dL (8.5-10.1); Chloride 106 mmol/L (98-107); Cholesterol 140 mg/dL (200); Creatinine, Serum 0.89 mg/dL (0.70-1.30); EST Glomerular Filtration Rate 92 mL/min (>60); Est Glom Filt Rate - Afr Amer 112 mL/min (>60); Estimated Creatinine Clearance 86.06 ml/min; Glucose 174 mg/dL (74-106); High Density Lipoprotein 34 mg/dL; Potassium 3.5 mmol/L (3.5-5.1); Protein, Total 6.4 g/dL (6.4-8.2); Sodium Level 138 mmol/L (136-145); Thyroid Stim Hormone (TSH) 1.93 uIU/mL (0.358-3.74); Triglycerides 304 mg/dL; Troponin-I HS 11894 pg/mL (3.0-78.0); Very Low Density Lipoprotein 61 mg/dL (5-40)
[2022-04-19] MEDS: CHLORHEXIDINE GLUC 2% CLOTH 1 EACH TOWELETTE TOPICAL (05:30)
[2022-04-19 05:35] LABS: Hemoglobin A1c 7.1 % (3.8-5.6)
--- NOTE | 2022-04-19 07:23 | PCM.PN.HOSP ---
Objective Data Objective Data Vital Signs: Vital Signs Temp Pulse Resp BP Pulse Ox 99.8 F H 81 19 H 116/82 H 97 04/19/22 04:00 04/19/22 07:00 04/19/22 07:00 04/19/22 07:00 04/19/22 07:00 Oxygen Flow Rate (L/min) 2 Oxygen Delivery Method Nasal Cannula Weight: 185 lb 6.4 oz Body Mass Index (BMI) 26.9 Intake & Output: Intake and Output for Last 24 Hours 04/17/22 04/18/22 04/19/22 23:59 23:59 23:59 Intake Total 1484.47 / 1984.47 800 / 800 Output Total 1450 / 2050 1200 / 1200 Balance 34.47 / -65.53 -400 / -400 Lab / Micro Data Result Diagrams: 04/19/22 04:00 04/19/22 04:00 Labs: Laboratory Results - last 24 hr 04/18/22 10:45: WBC 8.1, RBC 5.79, Hgb 17.0 H, Hct 50.1, MCV 86.5, MCH 29.4, MCHC 33.9, RDW Std Deviation 39.6, RDW Coeff of Danny 12.8, Plt Count 253, MPV 9.5, Immature Gran % (Auto) 0.500, Neut % (Auto) 59.0, Lymph % (Auto) 23.7, [place] % (Auto) 14.5 H, Eos % (Auto) 1.7, Baso % (Auto) 0.6, Absolute Neuts (auto) 4.8, Absolute Lymphs (auto) 1.91, Nucleated RBC % 0 04/18/22 10:45: PT 12.2, INR 0.9, APTT 23.5 L 04/18/22 10:45: Sodium 137, Potassium 3.9, Chloride 103, Carbon Dioxide 20.0 L, Anion Gap 14, BUN 33 H, Creatinine 1.31 H, Estim Creat Clear Calc 58.47, Est GFR (MDRD) Af Amer 71, Est GFR (MDRD) Non-Af 59 L, BUN/Creatinine Ratio 25.2 H, Glucose 255 H, Calcium 9.9, Troponin I High Sens 54 04/18/22 12:45: WBC 14.6 H, RBC 5.68, Hgb 16.4, Hct 49.5, MCV 87.1, MCH 28.9, MCHC 33.1, RDW Std Deviation 40.7, RDW Coeff of Danny 12.9, Plt Count 210, MPV 9.5 04/18/22 12:45: Magnesium 2.2, Troponin I High Sens 691 H* 04/18/22 16:58: POC Glucose 110 H 04/18/22 17:05: Troponin I High Sens 7840 H* 04/18/22 22:04: POC Glucose 124 H 04/19/22 03:44: POC Glucose 171 H 04/19/22 04:00: WBC 11.8 H, RBC 4.76, Hgb 13.6, Hct 41.2, MCV 86.6, MCH 28.6, MCHC 33.0, RDW Std Deviation 40.7, RDW Coeff of Danny 13.1, Plt Count 194, MPV 9.6, Immature Gran % (Auto) 0.300, Neut % (Auto) 77.6 H, Lymph % (Auto) 10.1 L, [place] % (Auto) 11.2 H, Eos % (Auto) 0.5, Baso % (Auto) 0.3, Absolute Neuts (auto) 9.2 H, Absolute Lymphs (auto) 1.20, Nucleated RBC % 0 04/19/22 04:00: Sodium 138, Potassium 3.5, Chloride 106, Carbon Dioxide 24.0, Anion Gap 8, BUN 23 H, Creatinine 0.89, Estim Creat Clear Calc 86.06, Est GFR (MDRD) Af Amer 112, Est GFR (MDRD) Non-Af 92, BUN/Creatinine Ratio 25.9 H, Glucose 174 H, Calcium 8.2 L, Total Bilirubin 0.40, AST 110 H, ALT 39, Alkaline Phosphatase 55, Troponin I High Sens 75526 H*, Total Protein 6.4, Albumin 3.4, Globulin 3.0, Albumin/Globulin Ratio 1.1, Triglycerides 304 H, Cholesterol 140, LDL Cholesterol 45, VLDL Cholesterol 61 H, HDL Cholesterol 34 L, TSH 1.93 04/19/22 04:00: Hemoglobin A1c 7.1 H Radiography Diagnostic Testing: Radiology Impression Echocardiogram 04/18/22 12:31 Interpretation Summary Normal LV size. The estimated ejection fraction is 45 %. Mercer : Hypokinetic. Mid-anteroseptal : Hypokinetic Septal Mercer : Hypokinetic Mild segmental systolic dysfunction (see wall motion). Chest X-Ray 04/18/22 14:11 IMPRESSION: Airspace disease in the right perihilar region following heart catheterization. This may represent atypical pulmonary edema. Clinical correlation recommended. Physical Exam Narrative Seen and examined. Discussed with the nursing staff. personnel monitor reviewed. Patient was tachycardic, heart rate about 120s until about 9 PM. Patient had first dose of carvedilol about 5 PM and second dose about 10 PM. His heart rate started slowing down around 11 PM that time it was in the 40s about 3 AM. Currently normal sinus rhythm. No V. tach, atrial or ventricular dysrhythmia seen on monitoring specialist. On low-dose carvedilol 3.125 twice daily. Patient complained that he was feeling diaphoretic last night and nauseous but no vomiting. General: Mild lethargy after cath. Oriented x3, Cooperative HEENT: Atraumatic, PERRLA, EOMI, Normocephalic Oral: Oral mucosa dry. No Gingival or Mucosal Lesions/ Ulcerations Neck: Supple, No JVD, Negative Carotid Bruits Lungs: Air entry diminished in bilateral lung bases. No crepitation/rhonchi Cardiovascular: Regular rate, Regular Rhythm, Normal S1, Normal S2, No murmurs Abdomen: Bowel Sounds Present, Soft, Non Tender, Non-Distended : No dysuria/new lower intact symptoms. No renal angle tenderness. No suprapubic tenderness. Extremities: No edema, Capillary Refill Less than 3 Seconds Skin: No rashes, No breakdown Musculoskeletal: No Tenderness to Palpation of Joints or Extremities Neurological: Cranial nerves II-XII grossly intact, DTR 2+/4 and Symmetrical, Neuro grossly intact Psych/Mental Status: Normal Affect, Appropriate. Assessment & Plan Assessment/Plan (1) Acute ST elevation myocardial infarction (STEMI) of anterolateral wall: PLAN: 1. Acute NSTEMI of anterolateral wall: Patient is being admitted in ICU. Patient had cath and found to have left main culprit lesion for which she had PCI and 2 stents. On aspirin, Brilinta, carvedilol, lisinopril, and atorvastatin. Right femoral artery access was closed with Perclose. Monitor right groin for hematoma or bleeding. Most recent vitals shows blood pressure 98/45, heart rate 74. No hypoxia. Serum magnesium ordered. Repeat EKG shows resolution of ST elevation and reciprocal changes. Normal sinus rhythm. Mild leukocytosis probably inflammatory reaction to STEMI. First troponin negative. 6/2: troponin high expected due to STEMI and V. 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 Chest x-ray individually reviewed and shows a right perihilar airspace disease possible atypical edema. Patient on 2 L of oxygen not tachypneic, BP 116/82. Intake/output balance -365 mL. Serum magnesium normal. IV fluid discontinued as chest x-ray mentioned above shows right perihilar pulmonary edema. Low-dose furosemide 20 mg IV x1. Chest x-ray ordered for tomorrow a.m. 2D echo shows EF 45% with segmental systolic dysfunction. 2. Diabetes mellitus type 2: Glucose is uncontrolled, 255 in BMP. A1c tomorrow a.m. Accu-Chek before meals and at bedtime coverage with Humalog sliding scale. /2: A1c 7.1. Add low-dose Lantus insulin. 3. Dyslipidemia: TC 140, TG 304, LDL 45, HDL 34. TSH 1.93. Patient on high intensity statin. 4. Elevated BUN/creatinine: BUN 33, creatinine 1.31, BUN/creatinine ratio 25 suggestive of prerenal possible [place]. No previous labs to compare. 6/: BUN 23. Creatinine 0.8. Serum electrolytes in normal range. K3.5. Magnesium 2.2. 1 dose of K-Dur 40 mill given. Try to keep serum potassium around 4. 5. VTE prophylaxis: Lovenox 40 mg every 12 hourly after 24 hours of sheath removal. Discontinue if platelet count drops less than 50,000 or hemoglobin less than 8 g%. Bilateral SCDs Living will/advanced directive/end of life care: Patient does not have living will or advanced directive. His next to kin his brother. Patient is single does not have or kids. After discussion of benefits/risks procedures involved with full code, DNR CC arrest and DNR CC, the patient opted for full code. Patient does want artificial life support including intubation, tube feed, ventilator and/chest compression, central venous catheter, vasopressor and DC shock if needed Total time spent in [id number] encounter in discussion of advanced directive 16 minutes. Charges/Coding Visit Charges Inpatient E&M: 50485 Subs Hosp L3
[2022-04-19 08:51] LABS: Bedside Glucose 146 mg/dL (74-106)
--- NOTE | 2022-04-19 09:06 | CRPHASE1_ITS ---
Patient Communication PHII Cardiac Rehab Discussed with Patient:: Yes Guide to Cardiac Rehab Given to Patient:: Yes Cardiac Rehab Facility Choice List Given to Patient:: Yes Choice Program [facility] CR PHII:: Communication Given to CR Choice Program Other:: Communication Given to CR Machinist Instructor:: Abdoulaye Moss Refer Phase II Cardiac Rehab:: Yes Sessions:: 36 sessions - 3 days/wk, 12 weeks Cardiac Rehabilitation Info Cardiac Rehabilitation Program Information: Cardiac Rehabilitation is important for patients like you who are recovering from a heart problem. Cardiac rehabilitation programs are recognized as integral to the continued care of the patient with coronary heart disease. The cardiac rehabilitation program is designed to optimize a patient's physical, psychological, and social functioning. Health day care provider work in cardiac rehabilitation programs and assist you with getting the treatments you need to get stronger and healthier - like exercise, healthy eating habits, and medications. Cardiac rehabilitation has been show to help people with heart problems live longer and have better life enjoyment than people who do not go to cardiac rehabilitation. Please contact the Cardiac Rehabilitation Program at [facility] at in two weeks if you have not heard from them.
--- NOTE | 2022-04-19 09:06 | CRPH1.INSTRU ---
General Education CAD and cardiac anatomy and function:: Patient communicates acknowledgment Explanation of diagnoses and procedures:: Patient communicates acknowledgment Sign/Symptoms of PA:: Patient communicates acknowledgment Antiplatelet therapy: Patient communicates acknowledgment Smoking Patient Nicotine/Smoking Risk Factors Are:: Never smoked Dyslipidemia Patient Dyslipidemia Risk Factors Are:: Total Cholesterol, Triglycerides, HDL, LDL Recommendations Include:: Lipid profile provided, Reviewed NCEP/ATP guidelines, Therapeutic Lifestyle Change dietary guidelines Dyslipidemia Response Code:: Patient communicates acknowledgment Overweight/Obesity Patient Overweight/Obesity Risk Factors Are:: Overweight = 26-29 Recommendations Include:: Weight loss of 5-10%, Reduced calorie diet, Exercise 5-7 times/week Overweight/Obesity:: Patient communicates acknowledgment Hypertension Patient Hypertension Risk Factors Are:: No documented hx of HTN Diabetes Patient Diabetes Risk Factors Are:: Elevated blood sugars Recommendations Include:: Maintain fasting blood sugars 70-110 md/dL, Maintain HgbA1c of 6% or less, Monitor blood sugar as prescribed, Diabetic dietary guidelines, Decrease/maintain body weight Diabetes:: Patient communicates acknowledgment Sedentary Patient Sedentary Risk Factors Are:: Lack of regular exercise Recommendations Include:: Aerobic exercise 5-7 times/week for 20-30 minutes continuously, Benefits of regular exercise, Discussed home walking program, Monitored Outpatient Cardiac Rehab Sedentary Response Code:: Patient communicates acknowledgment Stress Patient Stress Risk Factors Are:: Patient denies stress as a risk factor
--- NOTE | 2022-04-19 10:00 | EKG12_ITS ---
Test Reason : AM EKG Blood Pressure : / mmHG Vent. Rate : 079 BPM Atrial Rate : 079 BPM P-R Int : 170 ms QRS Dur : 076 ms QT Int : 406 ms P-R-T Axes : 052 080 070 degrees QTc Int : 465 ms Normal sinus rhythm Normal ECG When compared with ECG of 18-APR-2022 12:32, MANUAL COMPARISON REQUIRED, DATA IS UNCONFIRMED Confirmed by SHAINA BERRY, DAVE ([id number]), newspaper copy editor PETER MIN ([id number]) on 04/20/2022 1:52:45 PM Referred By: Abdoulaye Moss Confirmed By:YOHANNES MOSS MD
[2022-04-19] MEDS: Furosemide 20 MG/2 ML VIAL IV (10:39)
[2022-04-19] MEDS: Potassium Chloride Oral Tablet 20 MEQ 40 MEQ PO (10:39)
[2022-04-19] MEDS: Lisinopril 2.5 MG Tablet PO (10:39)
[2022-04-19] MEDS: Aspirin E.C. 81 MG Tablet PO (10:39)
[2022-04-19] MEDS: TICAGRELOR 90 MG TABLET PO ×2 (10:39→21:51)
[2022-04-19] MEDS: Carvedilol 3.125 MG TABLET PO ×2 (10:41→21:51)
[2022-04-19] MEDS: 0.9% Saline Lock 10 ML Syringe IV (10:42)
[2022-04-19] MEDS: Insulin Glargine-YFGN 100 UNIT/ML Pen SC (10:42)
--- NOTE | 2022-04-19 12:49 | CHAPLAIN ---
Type of Pastoral Visit ___ Initial Visit _x__ Follow-up Visit ___ On-call Visit ___ General Patient Visit ___ Spiritual Assessment ___ Family Conference ___ Bereavement ___ Rapid Response ___ Code Blue ___ Other (describe below) Pastoral Care Referral From _x__ Patient ___ Family ___ Nurse ___ Physician ___ Rn Transitional ___ Fine Arts Chair ___ Other (describe below) Sacrament/Intervention _x__ Active listening ___ Anointing ___ Worship ___ Bereavement ___ Communion ___ Mitzy exploration ___ _x__ Life review _x__ Prayer ___ Reconciliation ___ Sacrament of Sick ___ Supportive presence ___ Wedding ___ Other (describe below) Pastoral Comments patient feeling good and confident about outcome; pt realizes how close he came to dying and therefore expresses thanks for good care and speedy help
--- NOTE | 2022-04-19 13:10 | CASEMGMT ---
RN CM Face to Face with patient for initial transition planning/care coordination assessment. RN CM introduced self and role at [facility]. Patient sitting in chair, alert and oriented, father and brother at bedside. Patient willing to participate in assessment and is able to answer all questions appropriately. Care providers, pharmacy, and demographics verified. Patient wishes to discharge home, denies need for home health at this time. Patient states he has no further needs or concerns at this time. CM to follow for discharge planning needs that may arise. PCP: [place] Specialists: none Preferred Pharmacy: [facility] retail at discharge Insurance: [place] Prescription Benefit: yes, Brilinta savings card provided to patient Living Will/HPOA: yes, father Richnena Wood LNOK: father, brother Living Arrangements: Patient lives with significant other in a single story home with no steps to enter the home. Patient states he is independent at home. Transportation: self, family DME/HHC: Patient states he has cpap at home. No previous HHC or SNF at home. Disposition Plan: Patient to discharge home with family support and follow-up plans in place. Chloé HARRELL, RN, CM
[2022-04-19] MEDS: Insulin Lispro 100 UNIT/ML INSULN.PEN SC ×3 (13:25→21:51)
[2022-04-19] MEDS: Enoxaparin 40 MG/0.4 ML Syringe SC (13:25)
[2022-04-19 14:06] LABS: Bedside Glucose 190 mg/dL (74-106)
[2022-04-19 18:16] LABS: Bedside Glucose 168 mg/dL (74-106)
[2022-04-19] MEDS: Atorvastatin Calcium 40 MG Tablet PO (21:50)
[2022-04-19 22:00] LABS: Bedside Glucose 214 mg/dL (74-106)
[2022-04-20] VITALS (13 sets, daily range): BP systolic 102–144; BP diastolic 46–86; PULSE 64–94; RESP 13–18; TEMP 36.3–36.7; O2SAT 94–99
--- NOTE | 2022-04-20 05:55 | RAD_ITS ---
STUDY: X-RAY CHEST REASON FOR EXAM: Male, 62 years old. Right perihilar edema TECHNIQUE: Single AP portable view of the chest. COMPARISON: Comparison is made with prior study dated 04/18/2022. FINDINGS: EKG electrodes are seen. Mild elevation of the right hemidiaphragm. The lungs are clear. There is no demonstrated pleural abnormality. Normal size heart. Normal mediastinum and dania. Normal visualized pulmonary arteries. Normal visualized aortic arch and descending thoracic aorta. Normal visualized thoracic spine. Normal visualized ribs, clavicles, and shoulders. There is no demonstrated abnormality of the visualized soft tissue structures of the upper abdomen. RAD/Chest 1 View (Portable) IMPRESSION: No acute abnormality is seen. Electronically Signed: Foster Dent MD at 10:33 EDT ,
--- NOTE | 2022-04-20 07:01 | PCM.DC ---
Discharge Instructions Diet Discharge Diet: Low fat / Low cholesterol and 1800 Calorie Control Diet Activity Discharge Activity: Return to Normal Activity Weight Bearing Status: Weight bearing as tolerated Dressing / Incision Call your doctor if you observe: Fever of 101 or Higher, Coldness, Increased Pain, Numbness or Tingling, Change in Color, Inability to urinate, Inability to have a bowel movement, Shortness of breath, Dizziness, Fainting spells, Swelling in the ankles, Chest pain, Prolonged hiccupping, Increased palpitations (irregular heartbeat) and Calf discomfort Follow Up Care Test Results: Test results from this visit will be discussed in further detail at your follow-up appointment, if applicable. Discharge Plan Admission Admit Date/Time: 04/18/22 12:17 Primary Reason for Your Visit: anterior wall STEMI, Vent fib Attending Provider: Stewart Tyson Primary Care Provider: Hung Anglin Consulting Providers: Abdoulaye Moss Discharge Orders/Prescriptions Prescriptions: New Brilinta 90 mg Tablet 90 mg PO BID Qty: 60 RF: 2 atorvastatin 40 mg Tablet 40 mg PO QHS Qty: 30 RF: 2 aspirin 81 mg Tablet,Delayed Release (Dr/Ec) 81 mg PO DAILY@0800 Qty: 30 RF: 2 nitroglycerin 0.4 mg Tablet, Sublingual 0.4 mg sublingual Q5M PRN (Reason: Cardiac/Chest Pain) Qty: 30 RF: 0 lisinopril 2.5 mg Tablet 2.5 mg PO DAILY Qty: 30 RF: 0 carvedilol 3.125 mg Tablet 3.125 mg PO BID Qty: 60 RF: 2 sennosides-docusate sodium [Stool Softener-Stimulant Laxat] 8.6-50 mg Tablet 2 tab PO BID PRN (Reason: Constipation) Qty: 0 RF: 0 Continued omeprazole 20 mg capsule,delayed release(DR/EC) 20 mg PO QHS RF: 0 Synjardy XR 25-1,000 mg tablet, IR - ER, biphasic 24hr 1,000 tab PO DAILY RF: 0 Discontinued simvastatin 40 mg tablet 40 mg PO QHS RF: 0 Referrals / Follow Up: Hung Anglin MD [Primary Care Provider] - Jules Calderon MD [STAFF PHYSICIAN] - Within 1 Month Care Physician,No Primary [NON-STAFF] - Disposition Disposition (needs filled in before D/C Order can be placed): Home, Self Care
[2022-04-20 07:34] LABS: Anion Gap 7 (5-15); BUN 33 mg/dL (7-18); BUN/Creat Ratio 29.2 RATIO (10-20); Calcium,Total 8.6 mg/dL (8.5-10.1); Chloride 103 mmol/L (98-107); Creatinine, Serum 1.13 mg/dL (0.70-1.30); EST Glomerular Filtration Rate 70 mL/min (>60); Est Glom Filt Rate - Afr Amer 85 mL/min (>60); Estimated Creatinine Clearance 67.78 ml/min; Glucose 223 mg/dL (74-106); Potassium 3.8 mmol/L (3.5-5.1); Sodium Level 136 mmol/L (136-145)
--- NOTE | 2022-04-20 08:20 | DS.PCM_ITS ---
Providers Date of Admission: 04/18/22 Date of Discharge: 04/20/22 Primary Care Physician: Dr. Hung Anglin MD Consultations 04/18/22 13:30 Consult: Cardiology Routine Consulting Provider: Abdoulaye Moss Reason for Consult: stemi EMERGENT Consult: Yes MD Notified: Yes Date Notified: 04/18/22 Time Notified: 10:03 Method of Notification: ED Physician Initiated Reason For Visit: STEMI Diagnosis Discharge Diagnosis (1) Acute ST elevation myocardial infarction (STEMI) of anterolateral wall: Status: Acute Code(s): I21.09 - ST elevation (STEMI) myocardial infarction involving other coronary artery of anterior wall Medications at Discharge Home Medications Synjardy XR 1,000 tab PO DAILY 04/18/22 omeprazole 20 mg PO QHS 04/18/22 aspirin 81 mg PO DAILY@0800 #30 tab 04/20/22 atorvastatin 40 mg PO QHS #30 tab 04/20/22 carvedilol 3.125 mg PO BID #60 tab 04/20/22 lisinopril 2.5 mg PO DAILY #30 tab 04/20/22 nitroglycerin 0.4 mg SUBLINGUAL Q5M PRN #30 tab 04/20/22 sennosides-docusate sodium [Stool Softener-Stimulant Laxat] 2 tab PO BID PRN #0 tab 04/20/22 ticagrelor [Brilinta] 90 mg PO BID #60 tab 04/20/22 Hospital Course Summary of Care Provided Hospital Course: GRACIE NAIDU, is a 62 M with history of diabetes mellitus type 2 was brought to ED by EMS for midsternal chest pressure while playing golf, associated with shortness of breath and diaphoresis. Twelve-lead EKG shows anterior lateral STEMI. Patient had ventricular fibrillation during transit to ED and was shocked twice by EMS. Patient also had ventricular fibrillation e pisode during cardiac cath which was revived successfully with defibrillation. 1. Acute NSTEMI of anterolateral wall complicated with ventricular fibrillation: Patient is being admitted in ICU. Patient had cath and found to have left main culprit lesion for which she had PCI and 2 stents. On aspirin, Brilinta, carvedilol, lisinopril, and atorvastatin. Right femoral artery access was closed with Perclose. Repeat EKG shows resolution of ST elevation and reciprocal changes. Normal sinus rhythm. Mild leukocytosis probably inflammatory reaction to STEMI. First troponin negative. troponin high expected due to STEMI and V. 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 Chest x-ray individually reviewed and shows a right perihilar airspace disease possible atypical edema. Patient on 2 L of oxygen not tachypneic, BP 116/82. Intake/output balance -365 mL. Serum magnesium nor mal. IV fluid discontinued as chest x-ray mentioned above shows right perihilar pulmonary edema. Low-dose furosemide 20 mg IV x1. Repeat chest x-ray did not show acute abnormality. Patient did not had groin hematoma or bruit. 2D echo shows EF 45% with segmental systolic dysfunction. 2. Diabetes mellitus type 2: Glucose is uncontrolled, 255 in BMP. A1c tomorrow a.m. Accu-Chek before meals and at bedtime coverage with Humalog sliding scale. 04/19: A1c 7.1. Add low-dose Lantus insulin. 04/20: Patient is on SYNJARDY-XR and he wants to continue with that. Patient states his sugar at home is in 120s to 130s annual follow-up with his PCP. Lantus insulin discontinued 3. Dyslipidemia: TC 140, TG 304, LDL 45, HDL 34. TSH 1.93. Patient on high intensity statin. 4. Elevated BUN/creatinine: BUN 33, creatinine 1.31, BUN/creatinine ratio 25 suggestive of prerenal possible [place]. No previous labs to compare. 04/19: BUN 23. Creatinine 0.8. Serum electrolytes in normal range. K3.5. M agnesium 2.2. 1 dose of K-Dur 40 mEQ given. Try to keep serum potassium around 4. 5. VTE prophylaxis: Lovenox 40 mg every 12 hourly after 24 hours of sheath removal. Discontinue if platelet count drops less than 50,000 or hemoglobin less than 8 g%. Bilateral SCDs Discharge medication reconciliation done. Discharge follow-up instructions completed. Discharge process discussed with the patient and all questions were answered to patient's satisfaction. Prescription sent to the patient's preferred pharmacy. Follow-up with Dr. Calderon as instructed Total time spent, exact 35 minutes on discharge meds reconciliation, examination, coordination of care with nurses and ancillary staff, review of imaging and blood test and discussion with the patient on follow-up instructions. Living will/advanced directive/end of life care: Patient does not have living will or advanced directive. His next to kin his brother. Patient is single does not have or kids. After discussion of benefits/risks procedures involved with full code, DNR CC arrest and DNR CC, the patient opted for full code. Patient does want artificial life support including intubation, tube feed, ventilator and/chest compression, central venous catheter, vasopressor and DC shock if needed Physical Exam Narrative Seen and examined. Discussed with the nursing staff. pharmaceutical engineer reviewed. Patient was tachycardic, heart rate about 120s until about 9 PM. Patient had first dose of carvedilol about 5 PM and second dose about 10 PM. His heart rate started slowing down around 11 PM that time it was in the 40s about 3 AM. Currently normal sinus rhythm. No V. tach, atrial or ventricular dysrhythmia seen on customer counter representative. On low-dose carvedilol 3.125 twice daily. Patient complained that he was feeling diaphoretic last night and nauseous but no vomiting. General: Mild lethargy after cath. Oriented x3, Cooperative HEENT: Atraumatic, PERRLA, EOMI, Normocephalic Oral: Oral mucosa dry. No Gingival or Mucosal Lesions/ Ulcerations Neck: Supple, No JVD, Negative Carotid Bruits Lungs: Air entry diminished in bilateral lung bases. No crepitation/rhonchi Cardiovascular: Regular rate, Regular Rhythm, Normal S1, Normal S2, No murmurs Abdomen: Bowel Sounds Present, Soft, Non Tender, Non-Distended : No dysuria/new lower intact symptoms. No renal angle tenderness. No suprapubic tenderness. Extremities: No edema, Capillary Refill Less than 3 Seconds Skin: No rashes, No breakdown Musculoskeletal: No Tenderness to Palpation of Joints or Extremities Neurological: Cranial nerves II-XII grossly intact, DTR 2+/4 and Symmetrical, Neuro grossly intact Psych/Mental Status: Normal Affect, Appropriate. Weight / BMI Weight Weight: 181 lb 6.4 oz Body Mass Index (BMI) 26.9 ABG / Lab / Microbiology Data Result Diagrams: 04/19/22 04:00 04/20/22 04:10 Laboratory: Laboratory Results - last 24 hr 04/19/22 08:46: POC Glucose 146 H 04/19/22 13:20: POC Glucose 190 H 04/19/22 18:11: POC Glucose 168 H 04/19/22 21:49: POC Glucose 214 H 04/20/22 04:10: Sodium 136, Potassium 3.8, Chloride 103, Carbon Dioxide 26.0, Anion Gap 7, BUN 33 H, Creatinine 1.13, Estim Creat Clear Calc 67.78, Est GFR (MDRD) Af Amer 85, Est GFR (MDRD) Non-Af 70, BUN/Creatinine Ratio 29.2 H, Glucose 223 H, Calcium 8.6 D/C Instructions Discharge Diet: Low fat / Low cholesterol and 1800 Calorie Control Diet Weight Bearing Status: Weight bearing as tolerated Call your doctor if you observe: Fever of 101 or Higher, Coldness, Increased Pain, Numbness or Tingling, Change in Color, Inability to urinate, Inability to have a bowel movement, Shortness of breath, Dizziness, Fainting spells, Swelling in the ankles, Chest pain, Prolonged hiccupping, Increased palpitations (irregular heartbeat) and Calf discomfort Meaningful Use Info Meaningful Use Diagnoses (Choose all that apply): AMI AMI/Post PCI/Angioplasty Aspirin given w/in 24hrs of arrival?: Yes ASA at discharge?: Yes Statins at discharge?: Yes Sander/ARB at discharge?: Yes Beta Shelia at discharge?: Yes Done w/ Acute OH measure.: Yes Discharge Plan Admission Admit Date/Time: 04/18/22 12:17 Primary Reason for Your Visit: anterior wall STEMI, Vent fib Attending Provider: Stewart Tyson Primary Care Provider: Hung Anglin Consulting Providers: Abdoulaye Moss Discharge Orders/Prescriptions Prescriptions: New Brilinta 90 mg Tablet 90 mg PO BID Qty: 60 RF: 2 atorvastatin 40 mg Tablet 40 mg PO QHS Qty: 30 RF: 2 aspirin 81 mg Tablet,Delayed Release (Dr/Ec) 81 mg PO DAILY@0800 Qty: 30 RF: 2 nitroglycerin 0.4 mg Tablet, Sublingual 0.4 mg sublingual Q5M PRN (Reason: Cardiac/Chest Pain) Qty: 30 RF: 0 lisinopril 2.5 mg Tablet 2.5 mg PO DAILY Qty: 30 RF: 0 carvedilol 3.125 mg Tablet 3.125 mg PO BID Qty: 60 RF: 2 sennosides-docusate sodium [Stool Softener-Stimulant Laxat] 8.6-50 mg Tablet 2 tab PO BID PRN (Reason: Constipation) Qty: 0 RF: 0 Continued omeprazole 20 mg capsule,delayed release(DR/EC) 20 mg PO QHS RF: 0 Synjardy XR 25-1,000 mg tablet, IR - ER, biphasic 24hr 1,000 tab PO DAILY RF: 0 Discontinued simvastatin 40 mg tablet 40 mg PO QHS RF: 0 Referrals / Follow Up: Hung Anglin MD [Primary Care Provider] - Jules Calderon MD [STAFF PHYSICIAN] - Within 1 Month Care Physician,No Primary [NON-STAFF] - Disposition Disposition (needs filled in before D/C Order can be placed): Home, Self Care Charges/Coding Visit Charges Inpatient E&M: 19811 Disch Hosp
[2022-04-20] MEDS: Insulin Lispro 100 UNIT/ML INSULN.PEN SC (09:04)
[2022-04-20] MEDS: TICAGRELOR 90 MG TABLET PO (09:06)
[2022-04-20] MEDS: Aspirin E.C. 81 MG Tablet PO (09:06)
[2022-04-20] MEDS: Lisinopril 2.5 MG Tablet PO (09:07)
[2022-04-20] MEDS: Carvedilol 3.125 MG TABLET PO (09:07)
[2022-04-20] MEDS: Enoxaparin 40 MG/0.4 ML Syringe SC (09:07)
[2022-04-20] MEDS: Insulin Glargine-YFGN 100 UNIT/ML Pen SC (09:07)
[2022-04-20 09:21] LABS: Bedside Glucose 162 mg/dL (74-106)
--- NOTE | 2022-04-20 10:15 | NURSING ---
Approached patient about [facility] Patient Link program. Patient agreeable, consent obtained.
== END 2022-04-20 10:45 | disposition home or self-care (01) | DRG 252 ==
LOC: ED 10:51 → ICU 12:03
PROVIDERS: Admitting Provider Specialist; Emergency Provider Emergency Medicine; Referring Provider Specialist; Visit Provider Internal Medicine
DX: I21.09 ST elevation (STEMI) myocardial infarction involving other coronary artery of anterior wall (principal); I49.01 Ventricular fibrillation; I97.710 Intraoperative cardiac arrest during cardiac surgery; E11.65 Type 2 diabetes mellitus with hyperglycemia; I25.10 Atherosclerotic heart disease of native coronary artery without angina pectoris; E78.5 Hyperlipidemia, unspecified; G47.30 Sleep apnea, unspecified; Z79.84 Long term (current) use of oral hypoglycemic drugs; Y83.8 Other surgical procedures as the cause of abnormal reaction of the patient, or of later complication, without mention of misadventure at the time of the procedure; Z79.899 Other long term (current) drug therapy
CPT/HCPCS: 71045; 80048; 80053; 80061; 82962; 83036; 83735; 84443; 84484; 85025; 85027; 85610; 85730; 90471; 92941; 93005; 93306; 93458; 99251; 99285; C1757; J7030; Q9957; Q9967; A4216; C1725; C1760; C1769; C1874; C1887; C1894; C8929; C9606; G0463; J1327; J1940; J2405

== ENCOUNTER → 2022-06-01 | Outpatient (CLI) | payer BC, SELFPAY ==
--- NOTE | 2022-06-01 12:37 | CT_ITS ---
INDICATION: ANOMALOUS coronary arteries. EXAMINATION: CT CHEST WITHOUT CONTRAST - CT Chest W/O Contrast Injection. Cardiac examination. TECHNIQUE: Helically acquired images were obtained of the chest. A radiation dose optimization technique was used for this scan. IV Contrast dosage and agent: None. COMPARISON: None. FINDINGS: LUNGS, PLEURA AND LARGE AIRWAYS: Mild degree of dependent bibasilar atelectasis. No pleural effusion or thickening. No pneumothorax. THYROID: No thyroid lesions. HEART AND PERICARDIUM: Heart size is normal. No pericardial effusion. CORONARY ARTERIES: Coronary artery calcification is seen. VESSELS: Thoracic aorta is not dilated. MEDIASTINUM AND BHAVESH: Small mediastinal lymph nodes. Esophagus is unremarkable. No hiatal hernia. UPPER ABDOMEN: Fatty infiltration of the liver. BONES: No suspicious lytic or blastic abnormality. CT/Limited Chest CT Cardiac Only IMPRESSION: Coronary artery calcification. Mild degree of dependent bibasilar atelectasis. Electronically Signed: Foster Dent MD at 14:01 EDT ,
[2022-06-01 12:41] VITALS: BP 120/71; PULSE 73; RESP 14; TEMP 36.5; O2SAT 97; BMI 27.0
[2022-06-01 13:01] VITALS: BP 120/71; PULSE 73
[2022-06-01] MEDS: Nitroglycerin SL (ED/IMG/CATH) 0.4 MG TABLET SL (13:01)
[2022-06-01 13:10] LABS: CREATININE FINGERSTICK 1.2 mg/dL (0.70-1.30); EGFR FINGERSTICK > 60.0000 mL/min (>60)
[2022-06-01 13:15] VITALS: BP 127/64; PULSE 91; RESP 16; O2SAT 94
--- NOTE | 2022-06-01 17:11 | CCTA.WCONT ---
CCTA w/Cont Coronary Arteries Date of Study:: 06/01/22 Anomalous coronary artery The patient was brought to the radiology suite and after informed consent was obtained the patient was administered 100 cc of intravenous Isovue after appropriate metoprolol treatment given for heart rate response. The images were reconstructed and compared in appropriate slices. LEFT MAIN CORONARY ARTERY: This artery arises from the right coronary cusp and courses anterior to the pulmonary artery and then bifurcates into a left anterior descending artery and the left circumflex artery. Prior to the bifurcation of the left anterior descending artery is a stent. LEFT ANTERIOR DESCENDING CORONARY ARTERY: This vessel arises from the left main coronary artery and appears to be moderately calcified. It courses towards the apex of the ventricle. [] LEFT CIRCUMFLEX CORONARY ARTERY: This is a nondominant vessel with no obvious high-grade stenosis. Mild to moderate calcification and nonobstructive plaquing is noted. [] RIGHT CORONARY ARTERY: This artery arises from the right coronary cusp close to the origin of the left main coronary artery. It continues and gives off an acute marginal branch and terminates with a posterior descending artery and posterolateral branch. There is moderate calcification noted with mild to moderate plaquing noted. 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 No compromise of flow is noted.
== END | disposition home or self-care (01) ==
LOC: CT 12:31
PROVIDERS: Referring Provider Nurse Practitioner Family; Visit Provider Nurse Practitioner Family
DX: Z01.812 Encounter for preprocedural laboratory examination (principal); I25.10 Atherosclerotic heart disease of native coronary artery without angina pectoris; J98.11 Atelectasis
CPT/HCPCS: 75574; 76380

== ENCOUNTER → 2022-08-15 | Outpatient (CLI) | payer BC, SELFPAY ==
--- NOTE | 2022-08-15 10:44 | ECHOL_ITS ---
Reason For Study: Reduced EF Procedure This was a limited 2D transthoracic echocardiogram. Exam performed in department. Left Ventricle Normal LV size. The estimated ejection fraction is 55 %. No regional wall motion abnormalities noted. Right Ventricle Normal RV size. Normal systolic function. Atria Normal left atrium. Normal right atrium. Mitral Valve Normal mitral valve. Mild (1+) eccentric mitral valve insufficiency. Tricuspid Valve Normal tricuspid valve. Pulmonic Valve Normal pulmonic valve. Great Vessels Normal aortic root. The pulmonary artery is normal size. Normal inferior vena cava. Pericardium/Pleural No pericardial effusion. MMode/2D Measurements & Calculations LVIDd: 4.0 cm IVSd: 0.93 cm LVAd ap4: 23.2 cm2 LVIDs: 2.1 cm LVPWd: 0.86 cm LVLd ap4: 8.0 cm FS: 47.2 % EDV(MOD-sp4): 54.4 ml EDV(sp4-el): 57.0 ml LVAs ap4: 11.9 cm2 LVLs ap4: 7.0 cm ESV(MOD-sp4): 17.9 ml ESV(sp4-el): 17.3 ml EF(MOD-sp4): 67.1 % EF(sp4-el): 69.7 % SV(MOD-sp4): 36.5 ml SV(sp4-el): 39.7 ml Doppler Measurements & Calculations Ao V2 max: 140.0 cm/sec TR max susanne: 179.1 cm/sec Ao max P.8 mmHg TR max P.8 mmHg Ao V2 mean: 89.3 cm/sec Ao mean P.6 mmHg Ao V2 VTI: 29.8 cm ECHO/Echo, Limited Study Interpretation Summary Normal LV size. The estimated ejection fraction is 55 %. Structurally normal valves. Compared to previous study, the left ventricular sy stolic function has improved.. Ordering Physician: Remington Gallego Referring Physician: Hung Anglin Performed By: Irina Gallego RDCS, RVT
== END | disposition home or self-care (01) ==
LOC: CVS 10:42
PROVIDERS: Visit Provider Nurse Practitioner Family
DX: I25.5 Ischemic cardiomyopathy (principal); I25.10 Atherosclerotic heart disease of native coronary artery without angina pectoris; Z95.5 Presence of coronary angioplasty implant and graft
CPT/HCPCS: 93308